=== PATIENT | female | born 2000 | race Caucasian/White ===

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

== ENCOUNTER → 2020-07-08 | Outpatient (CLI) | payer BC ==
[~2020-07-08] MED LIST: BIRTH CONTROL PO
== END ==
LOC: COL.RAD 07:21
DX: N28.89 Other specified disorders of kidney and ureter (principal); R31.9 Hematuria, unspecified